=== PATIENT | female | born 1985 | race Caucasian/White ===

== ENCOUNTER 2017-08-08 12:49 | Emergency (ER) | payer OTHER ==
[~2017-08-08] VITALS: Ht 162.6 cm; Wt 44.5 kg
[2017-08-08 13:10] VITALS: BP 100/78
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
--- NOTE | 2017-08-08 15:05 | RAD ---
Left hand, 3 views, 08/08/2017: History: Hand pain. No fracture or dislocation is identified. The soft tissues are unremarkable. IMPRESSION: No significant left hand abnormality is detected.
== END 2017-08-08 15:00 | disposition home or self-care (01) ==
LOC: EEVIPCON 12:49 → ER 12:49
DX: S60.222A Contusion of left hand, initial encounter (principal); S70.12XA Contusion of left thigh, initial encounter; S00.01XA Abrasion of scalp, initial encounter; Y08.89XA Assault by other specified means, initial encounter; Y93.89 Activity, other specified; Y92.89 Other specified places as the place of occurrence of the external cause; Y99.8 Other external cause status
CPT/HCPCS: 73130; 99284